=== PATIENT | female | born 1980 | race Caucasian/White ===

== ENCOUNTER 2019-05-25 14:53 | Emergency (ER) | payer OTHER ==
[~2019-05-25] VITALS: Ht 160 cm; Wt 76.2 kg
[2019-05-25 15:00] VITALS: BP 174/97
--- NOTE | 2019-05-25 15:05 | NUR ---
PT TO [facility]. VSS. AA0X4
--- NOTE | 2019-05-25 17:27 | NUR ---
VSS AT THIS TIME. AA0X4. PT BACK TO ER LOBBY UNTIL BED IS AVAILABLE
--- NOTE | 2019-05-25 18:16 | NUR ---
PT TAKEN TO BED 8.
--- NOTE | 2019-05-25 18:20 | NUR ---
39 Y FEMALE, C/O EPISODES OF RECTAL BLEEDING X3 FOR THE LAST 3 DAYS, PT REPORTED SEEING BRIGHT RED BLOOD ON BM. NO C/O PAIN, +NAUSEA [id number], -VOMITTING, -DIARRHEA, -CONSTIPATION. LBM TODAY. PT WANTED TO BE SEEN IF HEMMORHOID PRESENT, AAOX4, GCS 15, RR EVEN UNLABORED, EDMD MADE AWARE, WILL CONTINUE TO MONITOR CLOSELY, BED LOCKED IN LOWEST POSITION, SIDERAIL UPX1. PMH- HTN RX- HYDROCHLOROTHIAZIDE
--- NOTE | 2019-05-25 18:20 | NUR ---
Note undone in EDM - 05/25/19 at 1853 by MEDAP 39 Y FEMALE, C/O EPISODES OF RECTAL BLEEDING X3 FOR THE LAST 3 DAYS. NO C/O PAIN, +NAUSEA [id number], -VOMITTING, -DIARRHEA, -CONSTIPATION. LBM TODAY. PT WANTED TO BE SEEN IF HEMMORHOID PRESENT, AAOX4, GCS 15, RR EVEN UNLABORED, EDMD MADE AWARE, WILL CONTINUE TO MONITOR CLOSELY, BED LOCKED IN LOWEST POSITION, SIDERAIL UPX1. PMH- HTN RX- HYDROCHLOROTHIAZIDE
--- NOTE | 2019-05-25 19:15 | NUR ---
REPORT GIVEN TO MANUEL LINDSEY. PT IN STABLE CONDITION AT THIS TIME.
--- NOTE | 2019-05-25 19:20 | NUR ---
DR. COELHO EVALUATING AT BEDSIDE.
--- NOTE | 2019-05-25 19:22 | NUR ---
COVERING PRIMARY NURSE FOR LUNCH. PT SITTING UP IN BED COMFORTABLY. AWAKE, ALERT. SKIN PINK, WARM, DRY. BREATHING EVEN, UNLABORED.
--- NOTE | 2019-05-25 19:55 | NUR ---
LAB DRAWING BLOOD AT BEDSIDE.
[2019-05-25 20:09] LABS: BASOPHILS % (AUTO) 0.4 % (0.0-2.0); EOSINOPHILS # (AUTO) 0.1 K/uL (0-0.4); EOSINOPHILS % (AUTO) 0.9 % (0.0-4.0); HEMATOCRIT 39.2 % (36-48); HEMOGLOBIN 13.6 g/dL (12.0-16.0); LYMPHOCYTES % (AUTO) 28.7 % (20.5-51.1); MEAN CORPUSCULAR HEMOGLOBIN 31 pg (27-31); MEAN CORPUSCULAR HGB CONC 35 g/dL (33-37); MEAN CORPUSCULAR VOLUME 90.1 fL (80-94); MONOCYTES # (AUTO) 0.6 K/uL (0.8-1.0); MONOCYTES % (AUTO) 5.8 % (1.7-9.3); NEUTROPHILS # (AUTO) 6.6 K/uL (1.8-7.7); NEUTROPHILS % (AUTO) 64.2 % (42.2-75.2); PLATELET COUNT (AUTO) 310 K/uL (140-450); RED BLOOD CELL COUNT(AUTO) 4.35 MIL/uL (4.20-5.40); RED CELL DISTRIBUTION WIDTH 12.8 % (11.6-13.7); WHITE BLOOD COUNT (AUTO) 10.3 K/uL (4.8-10.8)
[2019-05-25 21:09] LABS: ANION GAP 11.3 (8-16); CARBON DIOXIDE 28.7 mmol/L (21-32); CREATININE 0.7 mg/dL (0.6-1.3); TOTAL BILIRUBIN 0.4 mg/dL (0.0-1.0)
[2019-05-25 21:10] LABS: ALBUMIN 3.5 g/dL (3.4-5.0)
[2019-05-25 21:57] VITALS: BP 139/92
--- NOTE | 2019-05-25 21:57 | NUR ---
Patient discharged with v/s stable. Written and verbal after care instructions given and explained. Patient verbalized understanding. Ambulatory with steady gait. All questions addressed prior to discharge. Advised to follow up with PMD.
== END 2019-05-25 21:57 | disposition home or self-care (01) ==
LOC: MED 14:53
DX: K92.1 Melena (principal); R10.9 Unspecified abdominal pain; I10 Essential (primary) hypertension
CPT/HCPCS: 36415; 80053; 81025; 85025; 99283

== ENCOUNTER 2019-09-07 18:43 | Emergency (ER) | payer OTHER ==
[2019-09-09 20:33] LABS: ANION GAP 14.8 (8-16); CARBON DIOXIDE 26.8 mmol/L (21-32); CREATININE 0.7 mg/dL (0.6-1.3); POTASSIUM 4.6 mmol/L (3.5-5.1); TOTAL BILIRUBIN 0.4 mg/dL (0.0-1.0)
[2019-09-09 20:34] LABS: ALBUMIN 4.2 g/dL (3.4-5.0)
[2019-09-14 21:03] LABS: HEMATOCRIT 44.4 % (36-48); MEAN CORPUSCULAR HEMOGLOBIN 31 pg (27-31); MEAN CORPUSCULAR HGB CONC 34 g/dL (33-37); MEAN CORPUSCULAR VOLUME 91.4 fL (80-94); PLATELET COUNT (AUTO) 318 K/uL (140-450); RED BLOOD CELL COUNT(AUTO) 4.85 MIL/uL (4.20-5.40); RED CELL DISTRIBUTION WIDTH 12.5 % (11.6-13.7); WHITE BLOOD COUNT (AUTO) 12.6 K/uL (4.8-10.8)
[2019-09-14 21:04] LABS: BASOPHILS % (AUTO) 1.3 % (0.0-2.0); EOSINOPHILS # (AUTO) 0.1 K/uL (0-0.4); EOSINOPHILS % (AUTO) 0.8 % (0.0-4.0); LYMPHOCYTES # (AUTO) 3.6 K/uL (2.5-16.5); LYMPHOCYTES % (AUTO) 28.8 % (20.5-51.1); MONOCYTES # (AUTO) 0.7 K/uL (0.8-1.0); MONOCYTES % (AUTO) 5.5 % (1.7-9.3); NEUTROPHILS % (AUTO) 63.6 % (42.2-75.2)
[2019-09-14 21:05] LABS: BASOPHILS # (AUTO) 0.2 K/uL (0.00-0.22)
== END 2019-09-07 23:04 | disposition home or self-care (01) ==
LOC: MED 18:43
DX: R05 Cough (principal); K59.00 Constipation, unspecified; K62.5 Hemorrhage of anus and rectum; I10 Essential (primary) hypertension
CPT/HCPCS: 36415; 74022; 80053; 85025; 99284

== ENCOUNTER 2019-11-05 15:04 | Emergency (ER) | payer OTHER ==
[~2019-11-05] VITALS: Ht 154.9 cm; Wt 76.2 kg
[2019-11-05 15:19] VITALS: BP 136/89
--- NOTE | 2019-11-05 15:47 | NUR ---
39 YO FEMAL CO SORE THROAT AND LOSS OF VOICE. THROAT HAS BEEN SORE FOR OVER A WEEK AND LOST VOICE ON TUESDAY. NO NVD. NO FEVER. PT STATES SHE DOES HAVE A COUGH AND HEADACHE OFF AND ON. HX OF HTN AND HEART VALVE PROBLEM. PT IS TAKING MEDS FOR HTN. NO ONE AT HOME IS SICK AT THIS TIME.
--- NOTE | 2019-11-05 16:37 | NUR ---
CONTINUES TO WAIT FOR MD MORALES
[2019-11-05] MEDS ORDERED: KETOROLAC 30 MG/ML VIAL IM ONE (17:15)
[2019-11-05 17:25] VITALS: BP 128/72
--- NOTE | 2019-11-05 17:25 | NUR ---
Patient discharged with v/s stable. Written and verbal after care instructions given and explained. Patient alert, oriented and verbalized understanding of instructions. Ambulatory with steady gait. All questions addressed prior to discharge. ID band removed. Patient advised to follow up with PMD. Rx of MOTRIN/TYLENOL/PREDNISONE/PROMETHAZINE given. Patient educated on indication of medication including possible reaction and side effects. Opportunity to ask questions provided and answered.
== END 2019-11-05 17:24 | disposition home or self-care (01) ==
LOC: MED 15:04
DX: J04.0 Acute laryngitis (principal); I11.0 Hypertensive heart disease with heart failure
CPT/HCPCS: 96372; 99283; J1885

== ENCOUNTER 2021-02-16 22:32 | Emergency (ER) | payer OTHER ==
[~2021-02-16] VITALS: Ht 157.5 cm; Wt 75.3 kg
[2021-02-16 22:35] VITALS: BP 161/119
--- NOTE | 2021-02-16 23:01 | NUR ---
Patient ambualted to bed 6 with steady gait.
--- NOTE | 2021-02-16 23:03 | NUR ---
40 y.o female reports having high blood pressure and x1 day post fall. Pt has history of hypertension. feeling pain on the occipital lobe going down to the spine feeling like 2/10 but when pressed in that area it becomes a 4/10. pt reports slipping on rocks and fell on the knees and are scraped up. pt denies use of medication for BP. BP was 143/97 when recorded. denies N/V and dizziness. Pt reports not knowing what normal bp is for her. PMH: Hypertension, overlapped heart valve Allergies: NKA
--- NOTE | 2021-02-17 00:55 | NUR ---
ERMD at bedside for examination
--- NOTE | 2021-02-17 01:15 | NUR ---
FRANKD at pt bedside for re-examination
--- NOTE | 2021-02-17 01:19 | NUR ---
Patient discharged with v/s stable. Written and verbal after care instructions given and explained. Patient verbalized understanding. Ambulatory with steady gait. ID band removed. All questions addressed prior to discharge. Advised to follow up with PMD.
[2021-02-17 01:20] VITALS: BP 144/90
== END 2021-02-17 01:19 | disposition home or self-care (01) ==
LOC: MED 22:32
DX: R03.0 Elevated blood-pressure reading, without diagnosis of hypertension (principal); R42 Dizziness and giddiness; F43.9 Reaction to severe stress, unspecified; I10 Essential (primary) hypertension
CPT/HCPCS: 99285

== ENCOUNTER 2021-04-07 13:17 | Emergency (ER) | payer OTHER ==
[~2021-04-07] VITALS: Ht 160 cm; Wt 63.5 kg
[2021-04-07 13:40] VITALS: BP 126/103
--- NOTE | 2021-04-07 13:50 | NUR ---
PT ASKED TO WAIT IN LOBBY.
--- NOTE | 2021-04-07 14:01 | NUR ---
PT AMBULATED TO CHAIR C.
--- NOTE | 2021-04-07 14:15 | NUR ---
41 Y/O FEMALE C/O BODYACHES AND FLU-LIKE SYMPTOMS X5 DAYS. (+)CHILLS, WARM TO TOUCH, NAUSEA, COUGH, RUNNY NOSE. DENIES DIARRHEA, ABDOMINAL PAIN. TOOK CLARITIN, NYQUIL, MUCINEX WHICH PROVIDES MINIMAL RELIEF AND TOOK IBUPROFEN YESTERDAY. PT HAS NOT BEEN VACCINATED FOR COVID19. PT DENIES EXPOSURE TO ANYONE SICK. PT C/O WEAKNESS AND FATIGUE. DENIES PAIN. PT A/O X4 WITH EVEN AND UNLABORED RESPIRATIONS. PMH: HTN, HEART VALVE DISORDER MEDS: NONE NKA
--- NOTE | 2021-04-07 14:39 | NUR ---
JANETTE REN SAMPLED COLLECTED AND WALKED TO LAB
[2021-04-07] MEDS ORDERED: ACETAMINOPHEN EXTRA STRENGTH 500 MG TAB PO ONE (14:45)
[2021-04-07] MEDS ORDERED: IBUP-2213 PO (16:14)
[2021-04-07] MEDS ORDERED: ACET-10509 PO (16:14)
[2021-04-07 16:35] VITALS: BP 154/87
--- NOTE | 2021-04-07 16:40 | NUR ---
Patient discharged with v/s stable. Written and verbal after care instructions ABOUT MEDICATION, UPPER RESPIRATORY INFECTION AND COVID 19 given and explained. Patient alert, oriented and verbalized understanding of instructions. Ambulatory with steady gait. All questions addressed prior to discharge. ID band removed. Patient advised to follow up with PMD. Rx of ACETAMINOPHEN TAB AND IBUPROFEN given. Patient educated on indication of medication including possible reaction and side effects. Opportunity to ask questions provided and answered.
== END 2021-04-07 16:40 | disposition home or self-care (01) ==
LOC: MED 13:17
DX: B34.9 Viral infection, unspecified (principal); Z20.822 Contact with and (suspected) exposure to COVID-19; I10 Essential (primary) hypertension; Z79.899 Other long term (current) drug therapy
CPT/HCPCS: 81002; 81025; 87426; 99283; U0003

== ENCOUNTER 2021-04-11 18:13 | Emergency (ER) | payer OTHER, SELFPAY ==
[~2021-04-11] VITALS: Ht 154.9 cm; Wt 73.0 kg
[~2021-04-11 18:13] MED LIST: ACET-10509 PO; IBUP-2213 PO
[2021-04-11 18:39] VITALS: BP 132/63
--- NOTE | 2021-04-11 18:40 | NUR ---
Patient ambulated to bed 10 with steady/even gait.
--- NOTE | 2021-04-11 18:52 | NUR ---
RAD at bedside.
[2021-04-11] MEDS ORDERED: NACL 0.9% 1,000 ML IV ONE (18:55)
[2021-04-11] MEDS ORDERED: ONDANSETRON 4 MG/2 ML VIAL IVP ONE (18:55)
[2021-04-11] MEDS ORDERED: ACETAMINOPHEN 325 MG TAB PO ONE (18:55)
--- NOTE | 2021-04-11 19:05 | NUR ---
Patient SpO2 92% on room air; placed onto 2L via N/C due to complaint of SOB; SpO2 98% on 2LPM.
--- NOTE | 2021-04-11 19:16 | NUR ---
Report and transfer of care endorsed to MANUEL Molina.
[2021-04-11 19:25] LABS: BASOPHILS # (AUTO) 0.1 K/uL (0.00-0.22); BASOPHILS % (AUTO) 1.9 % (0.0-2.0); EOSINOPHILS % (AUTO) 0.1 % (0.0-4.0); HEMATOCRIT 41.9 % (36-48); HEMOGLOBIN 14.3 g/dL (12.0-16.0); LYMPHOCYTES # (AUTO) 0.9 K/uL (2.5-16.5); LYMPHOCYTES % (AUTO) 13.4 % (20.5-51.1); MEAN CORPUSCULAR HEMOGLOBIN 31 pg (27-31); MEAN CORPUSCULAR HGB CONC 34 g/dL (33-37); MEAN CORPUSCULAR VOLUME 89.3 fL (80-94); MONOCYTES # (AUTO) 0.4 K/uL (0.8-1.0); MONOCYTES % (AUTO) 5.7 % (1.7-9.3); NEUTROPHILS # (AUTO) 5.3 K/uL (1.8-7.7); NEUTROPHILS % (AUTO) 78.9 % (42.2-75.2); PLATELET COUNT (AUTO) 183 K/uL (140-450); RED BLOOD CELL COUNT(AUTO) 4.69 MIL/uL (4.20-5.40); RED CELL DISTRIBUTION WIDTH 12.7 % (11.6-13.7); WHITE BLOOD COUNT (AUTO) 6.7 K/uL (4.8-10.8)
[2021-04-11 19:38] LABS: ALBUMIN 3.8 g/dL (3.4-5.0); ANION GAP 11.8 (8-16); CARBON DIOXIDE 30.2 mmol/L (21-32); CREATININE 0.8 mg/dL (0.6-1.3); TOTAL BILIRUBIN 0.7 mg/dL (0.0-1.0)
--- NOTE | 2021-04-11 20:23 | NUR ---
O2 REMOVED. O2 SATURATION 94-95% ON R/A
[2021-04-11] MEDS ORDERED: ONDA-24 PO (20:36)
[2021-04-11] MEDS ORDERED: ACET-1182 PO (20:36)
[2021-04-11 21:05] VITALS: BP 124/74
--- NOTE | 2021-04-11 21:05 | NUR ---
Patient discharged with v/s stable. Written and verbal after care instructions given and explained. Patient alert, oriented and verbalized understanding of instructions. Ambulatory with steady gait. All questions addressed prior to discharge. ID band removed. Patient advised to follow up with PMD. Rx of TYLENOL & ZOFRAN given. Patient educated on indication of medication including possible reaction and side effects. Opportunity to ask questions provided and answered.
--- NOTE | 2021-04-16 05:52 | NUR ---
LATE ENTRY- 0.9% NS BOLUS DISCONTINUED AT 2019
== END 2021-04-11 21:05 | disposition home or self-care (01) ==
LOC: MED 18:13
DX: U07.1 COVID-19 (principal); J12.89 Other viral pneumonia; E86.0 Dehydration; R11.2 Nausea with vomiting, unspecified; R19.7 Diarrhea, unspecified; I10 Essential (primary) hypertension; Z79.899 Other long term (current) drug therapy
CPT/HCPCS: 36415; 71045; 80053; 85025; 96361; 96374; 99284; J2405; J7030

== ENCOUNTER 2022-04-06 08:27 | Emergency (ER) | payer OTHER ==
[~2022-04-06] VITALS: Ht 154.9 cm; Wt 83.0 kg
[~2022-04-06 08:27] MED LIST changes: +ACET-1182 PO; +ONDA-188 PO
[2022-04-06 08:44] VITALS: BP 143/88
--- NOTE | 2022-04-06 09:02 | NUR ---
DR HORTON AT BEDSIDE EVALUATING PT
--- NOTE | 2022-04-06 09:05 | NUR ---
42 Y/O FEMALE C/O GENERALIZED WEAKNESS X6 DAYS. PT REPORTS SEEING PCP LAST TUESDAY IN WHICH THEY INCREASED HER LISINOPRIL DOSAGE. PT REPORTS THIS MORNING SHE WOKE UP WITH LOWER FACIAL NUMBNESS, HEADACH AND FEELING DIZZY/LIGHTHEADED. DENIES SYNCOPAL EPISODE/FALLING. SYMMETRICAL SMILE NOTED, EQUAL HAND PEANUT SHELLER. PT DENIES PAIN BUT STATES HER FOREARMS FEEL SORE. DENIES N/V/BLURRY VISION. AMBULATORY WIT H STEADY GAIT. PT A/O X4 WITH EVEN AND UNLABORED RESPIRATIONS. PT IN GOWN, ON CHART CALCULATOR. PMH:HTN, HDL MEDS:LISINPRIL (INCREASED TO 20 MG), ATORASTATIN, HYDROCHLOROTHIAZIDE NKDA
--- NOTE | 2022-04-06 09:08 | NUR ---
PT AMBULATED TO RESTROOM FOR URINE SAMPLE WITH STEADY GAIT
--- NOTE | 2022-04-06 09:19 | NUR ---
LAB AT BEDSIDE
[2022-04-06 09:49] LABS: BASOPHILS % (AUTO) 0.4 % (0.0-2.0); EOSINOPHILS # (AUTO) 0.1 K/uL (0-0.4); EOSINOPHILS % (AUTO) 1.1 % (0.0-4.0); HEMATOCRIT 37.8 % (36-48); HEMOGLOBIN 12.9 g/dL (12.0-16.0); LYMPHOCYTES # (AUTO) 2.7 K/uL (2.5-16.5); LYMPHOCYTES % (AUTO) 28.4 % (20.5-51.1); MEAN CORPUSCULAR HEMOGLOBIN 31 pg (27-31); MEAN CORPUSCULAR HGB CONC 34 g/dL (33-37); MEAN CORPUSCULAR VOLUME 90.8 fL (80-94); MONOCYTES # (AUTO) 0.7 K/uL (0.8-1.0); MONOCYTES % (AUTO) 7.1 % (1.7-9.3); PLATELET COUNT (AUTO) 267 K/uL (140-450); RED BLOOD CELL COUNT(AUTO) 4.16 MIL/uL (4.20-5.40); RED CELL DISTRIBUTION WIDTH 12.9 % (11.6-13.7); WHITE BLOOD COUNT (AUTO) 9.6 K/uL (4.8-10.8)
[2022-04-06 09:59] LABS: ALBUMIN 3.5 g/dL (3.4-5.0); ASPARTATE AMINOTRANSFERASE 0 U/L (15-37); CARBON DIOXIDE 29.3 mmol/L (21-32); CHLORIDE 105 mmol/L (98-107); CREATININE 0.7 mg/dL (0.6-1.3); GFR ARICAN-AMERICAN 119 mL/min (>90); GLUCOSE 110 mg/dL (74-106); POTASSIUM 4.3 mmol/L (3.5-5.1); SODIUM SERUM 140 mmol/L (136-145); TOTAL BILIRUBIN 0.3 mg/dL (0.0-1.0); UREA NITROGEN, BLOOD 12 mg/dL (7-18)
[2022-04-06 10:50] VITALS: BP 130/85
--- NOTE | 2022-04-06 10:52 | NUR ---
2ND TROPONIN NOT COMPLETE. DR HORTON SAID OKAY TO D/C WITHOUT.
--- NOTE | 2022-04-06 11:05 | NUR ---
Patient discharged with v/s stable. Written and verbal after care instructions ABOUT HYPERTENSION given and explained. Patient verbalized understanding. Ambulatory with steady gait. All questions addressed prior to discharge. Advised to follow up with PMD.
== END 2022-04-06 11:05 | disposition home or self-care (01) ==
LOC: MED 08:27
DX: I10 Essential (primary) hypertension (principal); Z79.899 Other long term (current) drug therapy; Z79.1 Long term (current) use of non-steroidal anti-inflammatories (NSAID)
CPT/HCPCS: 36415; 80053; 81002; 81025; 84484; 85025; 93005; 99284

== ENCOUNTER 2022-05-04 08:51 | Emergency (ER) | payer OTHER ==
[~2022-05-04] VITALS: Ht 154.9 cm; Wt 83.0 kg
[2022-05-04 08:56] VITALS: BP 125/77
--- NOTE | 2022-05-04 09:01 | NUR ---
PT TO CEE López
--- NOTE | 2022-05-04 09:02 | NUR ---
42 Y/O FEMALE C/O GENERALIZED EDEMA X 1MONTH. PT STATES SHE WAS RECENTLY SEEN AND PRESCRIBED LASIX WITH SOME RELEIF. DENIES FEVER/CHILLS. DENIES N/V/D. PMH: HTN, HLD NKA
[2022-05-04 10:25] LABS: BASOPHILS % (AUTO) 0.6 % (0.0-2.0); EOSINOPHILS # (AUTO) 0.1 K/uL (0-0.4); EOSINOPHILS % (AUTO) 1.2 % (0.0-4.0); HEMATOCRIT 39.1 % (36-48); HEMOGLOBIN 13.4 g/dL (12.0-16.0); LYMPHOCYTES # (AUTO) 2.2 K/uL (2.5-16.5); LYMPHOCYTES % (AUTO) 26.8 % (20.5-51.1); MEAN CORPUSCULAR HEMOGLOBIN 31 pg (27-31); MEAN CORPUSCULAR HGB CONC 34 g/dL (33-37); MEAN CORPUSCULAR VOLUME 91.1 fL (80-94); MONOCYTES # (AUTO) 0.4 K/uL (0.8-1.0); MONOCYTES % (AUTO) 4.5 % (1.7-9.3); NEUTROPHILS # (AUTO) 5.5 K/uL (1.8-7.7); NEUTROPHILS % (AUTO) 66.9 % (42.2-75.2); PLATELET COUNT (AUTO) 303 K/uL (140-450); RED BLOOD CELL COUNT(AUTO) 4.29 MIL/uL (4.20-5.40); RED CELL DISTRIBUTION WIDTH 12.7 % (11.6-13.7); WHITE BLOOD COUNT (AUTO) 8.3 K/uL (4.8-10.8)
[2022-05-04 11:05] LABS: ALBUMIN 3.6 g/dL (3.4-5.0); ANION GAP 14.3 (8-16); CARBON DIOXIDE 25.6 mmol/L (21-32); CREATININE 0.6 mg/dL (0.6-1.3); POTASSIUM 3.9 mmol/L (3.5-5.1); TOTAL BILIRUBIN 0.4 mg/dL (0.0-1.0)
[2022-05-04 12:07] VITALS: BP 120/86
--- NOTE | 2022-05-04 12:09 | NUR ---
Patient discharged with v/s stable. Written and verbal after care instructions given FOR PERIPHERAL EDEMA and explained. Patient verbalized understanding. Ambulatory with steady gait. All questions addressed prior to discharge. Advised to follow up with PMD.
== END 2022-05-04 12:09 | disposition home or self-care (01) ==
LOC: MED 08:51
DX: R60.1 Generalized edema (principal); I10 Essential (primary) hypertension
CPT/HCPCS: 36415; 71045; 80053; 83880; 85025; 99284

== ENCOUNTER 2023-08-30 08:08 | Emergency (ER) | payer MEDICAID, OTHER ==
[~2023-08-30] VITALS: Ht 154.9 cm; Wt 87.5 kg
[2023-08-30 08:11] VITALS: BP 162/102; PULSE 90; RESP 18; TEMP 97.9; O2SAT 99
[2023-08-30] MEDS ORDERED: KETOROLAC 30 MG/ML VIAL IM ONE (08:45)
[2023-08-30] MEDS ORDERED: KETOROLAC 30 MG/ML VIAL ONE (10:03)
[2023-08-30] MEDS ORDERED: IBUP-2213 PO (11:04)
[2023-08-30 11:20] VITALS: BP 147/80; PULSE 80; RESP 18; TEMP 98.9; O2SAT 98
== END 2023-08-30 11:20 | disposition home or self-care (01) ==
LOC: MED 08:08
DX: S93.401A Sprain of unspecified ligament of right ankle, initial encounter (principal); S93.601A Unspecified sprain of right foot, initial encounter; I10 Essential (primary) hypertension; Z79.899 Other long term (current) drug therapy; Z79.1 Long term (current) use of non-steroidal anti-inflammatories (NSAID); W18.39XA Other fall on same level, initial encounter; Y92.89 Other specified places as the place of occurrence of the external cause; Y93.89 Activity, other specified; Y99.8 Other external cause status
CPT/HCPCS: 73610; 73630; 96372; 99284; J1885